=== PATIENT | female | born 1990 | race Caucasian/White ===

== ENCOUNTER 2022-08-12 09:15 | Emergency (ER) | payer SELFPAY ==
--- OUTSIDE RECORDS SUMMARY | 2022-08-12 09:17 | XMS REPORT | Continuity of Care Document ---
:1990 Author Organization [facility] t Address [facility] [place] [address] Care Team Providers Name Role Phone LAYA SEAMAN Attending Clinician Unavailable Problems This patient has no known problems. Allergies, Adverse Reactions, Alerts Allergy Allergy Status Severity Reaction(s) Onset Inactive Treating Comm ents Source Name Type Date Date Clinician LATEX, Drug Active Med Other-Cmnt 0 Univer s NATURAL Class 9-13 ity of RUBBER 00:00: [address] CEFACLOR DRUG Active Hives [facility] INGREDI 8-05 ity of 00:00: [address] Medications This patient has no known medications. Procedures This patient has no known procedures. Encounters Start End Encounter Admission Attending Care Care Encounter Source Date/Time Date/Time Type Type Clinicians Facility Department ID 2020-01-14 2020-01-14 Outpatient R JURGEN WICHRISTOPHER [facility] [id number] [facility] 11:00:00 11:00:[address] [facility] Results This patient has no known results.
[2022-08-12] MEDS ORDERED: ONDANSETRON 4 MG/2 ML VIAL ONE (09:48)
[2022-08-12] MEDS ORDERED: MORPHINE 2 MG/ML SYR ONE (09:48)
[2022-08-12 10:14] LABS: Absolute Lymphocytes (CBC) 1.7 K/uL (0.7-4.9); Hematocrit 40.4 % (36.0-45.0); Lymphocytes % 18.5 % (15.3-44.8); MCV 83.7 fL (80-100); RBC Red Blood Cell Count 4.83 M/uL (3.86-4.86)
--- NOTE | 2022-08-12 10:15 | RAD REPORT ---
EXAM DESCRIPTION: RAD - Chest Single View - 08/12/2022 9:53 am CLINICAL HISTORY: CHEST PAIN COMPARISON: PA chest 01/31/2017 TECHNIQUE: AP portable chest image was obtained 08/12/2022 9:53 am . FINDINGS: Lungs are clear. Overlying breast soft tissues increase lower lung field density. Heart an d vasculature are normal. No measurable pleural effusion and no pneumothorax. No acute bony abnormali ty seen. No acute aortic findings suspected. IMPRESSION: No acute cardiopulmonary process. No significant change from comparison study.
[2022-08-12 10:29] LABS: Troponin High Sensitivity 4.7 pg/mL (<58.9)
[2022-08-12 10:46] LABS: SARS-COV-2 RT PCR NEGATIVE (NEGATIVE)
--- NOTE | 2022-08-12 11:58 | RAD REPORT ---
EXAM DESCRIPTION: CT - Head Brain Wo Cont - 08/12/2022 11:49 am CLINICAL HISTORY: L arm numbness COMPARISON: No comparisons TECHNIQUE: Axial 5 mm thick images of the head were obtained without IV contrast. All CT scans are performed using dose optimization technique as appropriate and may include automated exposure control or mA/KV adjustment according to patient size. FINDINGS: No intracranial hemorrhage, mass, edema or shift of mid-line structures. No acute infarcti on changes seen. No abnormal extra-axial fluid collections. Ventricles are normal. Mastoid air cells are clear. Minimal patchy mucosal thickening seen in the ethmoid air cells. Paranas al sinuses are otherwise clear. There is left deviation of the nasal septum. No acute bony findings. IMPRESSION: No intracranial abnormality identifiable. Patchy mucosal thickening in the ethmoid air cells not likely of clinical significance. Paranasal sin uses are otherwise clear.
--- NOTE | 2022-08-12 12:02 | EDPHYS ---
Physician Documentation [facility] Name: Mercy Troy Age: 31 yrs Sex: Female : 1990 Arrival Date: 08/12/2022 Time: 09:17 Bed 7 Private MD: ED Physician Elias Carrillo HPI: 08/12 09:28 This 31 yrs old Female presents to ER via Ambulatory with complaints of Arm Pain, jh7 Nausea. 09:28 The patient or guardian complains of pain, that is acute. The complaints affect the L jh7 shoulder pain that radiates down to fingertips. Context: The problem was sustained at home, no inury. Onset: The symptoms/episode began/occurred last night. Treatment prior to arrival includes: no previous treatment. Associated signs and symptoms: Pertinent positives: nausea, Pertinent negatives: decreased range of motion, fever, tingling, vomiting, weakness. 09:28 Patient also reports progressive cough over the past 2 weeks.. jh7 Historical: - Allergies: 09:28 Ceclor; iw - PMHx: 09:28 Sepsis; iw - PSHx: 09:28 hysterectomy; bladder; colon resection; section; iw - Immunization history:: Adult Immunizations. - Social history:: Smoking status: Patient reports the use of cigarette tobacco products. ROS: 09:28 MS/extremity: Positive for pain. jh7 09:28 Constitutional: Negative for fever, chills, and weight loss, Eyes: Negative for injury, jh7 pain, redness, and discharge, ENT: Negative for injury, pain, and discharge, Neck: Negative for injury, pain, and swelling, Cardiovascular: Negative for chest pain, palpitations, and edema, Back: Negative for injury and pain, Skin: Negative for injury, rash, and discoloration, Neuro: Negative for headache, weakness, numbness, tingling, and seizure. 09:28 Respiratory: Positive for cough, Negative for shortness of breath, wheezing. 09:28 Abdomen/GI: Positive for nausea, Negative for vomiting, diarrhea, constipation. 09:28 All other systems are negative. jh7 Exam: 09:28 Head/Face: Normocephalic, atraumatic. ENT: Nares patent. No nasal discharge, no jh7 septal abnormalities noted. Tympanic membranes are normal and external auditory canals are clear. Oropharynx with no redness, swelling, or masses, exudates, or evidence of obstruction, uvula midline. Mucous membranes moist. Neck: Trachea midline, no thyromegaly or masses palpated, and no cervical lymphadenopathy. Supple, full range of motion without nuchal rigidity, or vertebral point tenderness. No Meningismus. Cardiovascular: Regular rate and rhythm with a normal S1 and S2. No gallops, murmurs, or rubs. Normal PMI, no JVD. No pulse deficits. Respiratory: Lungs have equal breath sounds bilaterally, clear to auscultation and percussion. No rales, rhonchi or wheezes noted. No increased work of breathing, no retractions or nasal flaring. Abdomen/GI: Soft, non-tender, with normal bowel sounds. No distension or tympany. No guarding or rebound. No evidence of tenderness throughout. Skin: Warm, dry with normal turgor. Normal color with no rashes, no lesions, and no evidence of cellulitis. MS/ Extremity: Pulses equal, no cyanosis. Neurovascular intact. Full, normal range of motion. Neuro: Awake and alert, GCS 15, oriented to person, place, time, and situation. Motor strength 5/5 in all extremities. Sensory grossly intact. Normal gait. 09:28 Constitutional: The patient appears alert, awake, in obvious pain. 09:44 ECG was reviewed by the Attending Physician. [facility] Vital Signs: 09:28 BP 138 / 81; Pulse 104; Resp 18; Temp 97.9(O); Pulse Ox 97% on R/A; Weight 83.91 kg; iw Height 4 ft. 11 in. (149.86 cm); Pain 9/10; 10:55 BP 123 / 64; Pulse 68; Resp 18; Pulse Ox 96% ; hb 11:49 BP 109 / 61; Pulse 68; Resp 19 S; Pulse Ox 94% on R/A; kc6 12:46 BP 117 / 57; Pulse 94; Resp 15 S; Pulse Ox 97% on R/A; kc6 09:28 Body Mass Index 37.37 (83.91 kg, 149.86 cm) iw MDM: 09:20 Patient medically screened. [facility] 12:05 Differential diagnosis: Acute VT, ulnar nerve irritation, acute CVA, left forearm jh7 strain. Data reviewed: vital signs, nurses notes, lab test result(s), EKG, radiologic studies, CT scan, plain films. I considered the following discharge prescriptions or medication management in the emergency department Medications were administered in the Emergency Department. See MAR. Independent interpretation of the following test(s) in the Emergency Department EKG: See my EKG interpretation above. Historians other than the Patient: Friend: . Counseling: I had a detailed discussion with the patient and/or guardian regarding: the historical points, exam findings, and any diagnostic results supporting the discharge/admit diagnosis, to return to the emergency department if symptoms worsen or persist or if there are any questions or concerns that arise at home. ED course: The patient reported that the medication helped with her pain. She stated that her pain was actually starting from the ulnar aspect of her forearm radiating down to her fourth and fifth digits. She stated that her fourth and fifth digits felt numb. Suspected cubital tunnel syndrome/ulnar nerve irritation. Agreed to prescribe anti-inflammatories and muscle relaxers. She was advised that if she develops any new concerning symptoms, she may return to the ER for further eval.. 08/12 09:31 Order name: Basic Metabolic Panel; Complete Time: 11: [facility] 08/12 09:31 Order name: CBC with Diff; Complete Time: 11: [facility] 08/12 09:31 Order name: Troponin HS; Complete Time: 11: [facility] 08/12 09:31 Order name: XRAY Chest (1 view); Complete Time: 10:17 [facility] 08/12 09:34 Order name: COVID-19/FLU A+B; Complete Time: 11:01 [facility] 08/12 11:09 Order name: CT Head Brain wo Cont; Complete Time: 12:01 [facility] 08/12 09:31 Order name: EKG; Complete Time: 09:32 [facility] 08/12 09:31 Order name: Cardiac monitoring; Complete Time: 09:42 [facility] 08/12 09:31 Order name: EKG - Nurse/Tech; Complete Time: 09:42 [facility] 08/12 09:31 Order name: IV Saline Lock; Complete Time: 10:03 [facility] 08/12 09:31 Order name: Labs collected and sent; Complete Time: 10:03 [facility] 08/12 09:31 Order name: O2 Per Protocol; Complete Time: 09:42 [facility] 08/12 09:31 Order name: O2 Sat Monitoring; Complete Time: 09:42 jh7 EC:44 Rate is 82 beats/min. Rhythm is regular. QRS [place] is Normal. WA interval is normal at [facility] 156 msec. QRS interval is normal at 78 msec. QT interval is normal at 384 msec. No Q waves. T waves are Normal. Clinical impression: NSR w/ Non-specific ST/T Changes. Administered Medications: 10:03 Drug: Zofran (Ondansetron) 4 mg Route: IVP; Site: left antecubital; 6 10:59 Follow up: Response: No adverse reaction; Nausea is decreased [facility] 10:03 Drug: morphine 2 mg Route: IVP; Infused Over: 4 mins; Site: left antecubital; 6 10:59 Follow up: Response: No adverse reaction; Pain is decreased; RASS: Alert and Calm (0) [facility] Disposition: 16:25 Co-signature as Attending Physician, Elias Carrillo MD I agree with the assessment and kdr plan of care. Disposition Summary: 08/12/22 12:01 Discharge Ordered Location: Home [facility] Problem: new [facility] Symptoms: have improved [facility] Condition: Stable [facility] Diagnosis - Pain in left arm [facility] Followup: [facility] - With: Private Physician - When: 2 - 3 days - Reason: Recheck today's complaints Discharge Instructions: - Discharge Summary Sheet [facility] - Musculoskeletal Pain [facility] Forms: - Medication Reconciliation Form [facility] - Thank You Letter [facility] Prescriptions: - Naprosyn 500 mg Oral Tablet - take 1 tablet by ORAL route 2 times per day take with food; 30 tablet; Refills: [facility] 0, Product Selection Permitted - Zanaflex 4 mg Oral Tablet - take 1 tablet by ORAL route every 8 hours As needed; 20 tablet; Refills: 0, 7 Product Selection Permitted Signatures: Dispatcher [employer] EDLA Elias Carrillo MD MD kdr Williams, Irene, RN RN iw Hadash, Jennifer, FNP FNP [facility] Vicky Yanez RN RN kc6 Corrections: (The following items were deleted from the chart) 09:35 09:28 MS/extremity: Positive for pain, [place] [id number]
--- NOTE | 2022-08-12 12:02 | ER ---
Nurse's Notes [facility] Name: Mercy Troy Age: 31 yrs Sex: Female : 1990 Arrival Date: 08/12/2022 Time: 09:17 Bed 7 Private MD: Diagnosis: Pain in left arm Presentation: 08/12 09:28 Chief complaint: Patient states: dull left arm pain sine yesterday pain radiates up int iw shoulder , also has a cough 2 weeks. Coronavirus screen: Client presents with at least one sign or symptom that may indicate coronavirus-19. Ebola Screen: Patient negative for fever greater than or equal to 101.5 degrees Fahrenheit, and additional compatible Ebola Virus Disease symptoms Patient denies exposure to infectious person. Patient denies travel to an Ebola-affected area in the 21 days before illness onset. No symptoms or risks identified at this time. Initial Sepsis Screen: Does the patient meet any 2 criteria? No. Patient's initial sepsis screen is negative. Does the patient have a suspected source of infection? No. Patient's initial sepsis screen is negative. Risk Assessment: Do you want to hurt yourself or someone else? Patient reports no desire to harm self or others. Onset of symptoms was August 10, 2022. 09:28 Method Of Arrival: Ambulatory iw 09:28 Acuity: JENSEN 3 iw Historical: - Allergies: 09:28 Ceclor; iw - PMHx: 09:28 Sepsis; iw - PSHx: 09:28 hysterectomy; bladder; colon resection; section; iw - Immunization history:: Adult Immunizations. - Social history:: Smoking status: Patient reports the use of cigarette tobacco products. Screenin:45 [facility] ED Fall Risk Assessment (Adult) History of falling in the last 3 months, kc6 including since admission No falls in past 3 months (0 pts) Confusion or Disorientation No (0 pts) Intoxicated or Sedated No (0 pts) Impaired Gait No (0 pts) Mobility Assist Device Used No (0 pt) Altered Elimination No (0 pt) Score/Fall Risk Level 0 - 2 = Low Risk Oriented to surroundings, Maintained a safe environment, Educated pt \T\ family on fall prevention, incl call for assistance when getting out of bed, Assessed \T\ reinforced patient's understanding of fall precautions, Hourly rounding (assess needs \T\ fall precautionary measures) done. Abuse screen: Denies threats or abuse. Denies injuries from another. Nutritional screening: No deficits noted. Tuberculosis screening: No symptoms or risk factors identified. Assessment: 09:45 General: Appears in no apparent distress. comfortable, Behavior is calm, cooperative, kc6 appropriate for age. Pain: Complains of pain in left arm Pain currently is 10 out of 10 on a pain scale. Quality of pain is described as sharp, shooting, Is continuous, Alleviated by nothing. Also complains of no other associated symptoms. Neuro: Powers Agitation-Sedation Scale (RASS): 0 - Alert and Calm Level of Consciousness is awake, alert, obeys commands, Oriented to person, place, time, situation, Appropriate for age. Cardiovascular: Capillary refill < 3 seconds. Respiratory: Airway is patent Trachea midline Respiratory effort is even, unlabored, Respiratory pattern is regular, symmetrical. GI: Abdomen is flat, non-distended, Bowel sounds present X 4 quads. Abd is soft and non tender X 4 quads. Reports nausea, Patient currently denies diarrhea, vomiting. : No signs and/or symptoms were reported regarding the genitourinary system. EENT: No signs and/or symptoms were reported regarding the EENT system. Derm: No signs and/or symptoms reported regarding the dermatologic system. Skin is intact, Skin is pink, warm \T\ dry. Musculoskeletal: No signs and/or symptoms reported regarding the musculoskeletal system. Circulation, motion, and sensation intact. Capillary refill < 3 seconds, Range of motion: intact in all extremities. 10:56 Reassessment: Patient appears in no apparent distress at this time. Patient and/or hb family updated on plan of care and expected duration. Pain level reassessed. Patient is alert, oriented x 3, equal unlabored respirations, skin warm/dry/pink. 11:47 Reassessment: Patient appears in no apparent distress at this time. Patient and/or hb family updated on plan of care and expected duration. Pain level reassessed. Patient is alert, oriented x 3, equal unlabored respirations, skin warm/dry/pink. 12:46 Reassessment: Patient appears in no apparent distress at this time. No changes from kc6 previously documented assessment. Patient and/or family updated on plan of care and expected duration. Pain level reassessed. Patient is alert, oriented x 3, equal unlabored respirations, skin warm/dry/pink. Vital Signs: 09:28 BP 138 / 81; Pulse 104; Resp 18; Temp 97.9(O); Pulse Ox 97% on R/A; Weight 83.91 kg; iw Height 4 ft. 11 in. (149.86 cm); Pain 9/10; 10:55 BP 123 / 64; Pulse 68; Resp 18; Pulse Ox 96% ; hb 11:49 BP 109 / 61; Pulse 68; Resp 19 S; Pulse Ox 94% on R/A; kc6 12:46 BP 117 / 57; Pulse 94; Resp 15 S; Pulse Ox 97% on R/A; kc6 09:28 Body Mass Index 37.37 (83.91 kg, 149.86 cm) iw ED Course: 09:17 Patient arrived in ED. as 09:20 Shey Baeza FNP is PHCP. jh7 09:20 Elias Carrillo MD is Attending Physician. jh7 09:29 Triage completed. iw 09:30 Arm band placed on. iw 09:38 Vicky Yanez, RN is Primary Nurse. kc6 09:45 Patient has correct armband on for positive identification. Placed in gown. Bed in low kc6 position. Call light in reach. Side rails up X2. Adult w/ patient. 09:55 XRAY Chest (1 view) In Process Unspecified. EDMS 10:03 COVID-19/FLU A+B Sent. kc6 10:03 Basic Metabolic Panel Sent. kc6 10:03 CBC with Diff Sent. kc6 10:03 Troponin HS Sent. kc6 10:04 Inserted saline lock: 20 gauge in left antecubital area, using aseptic technique. Blood kc6 collected. 11:51 CT Head Brain wo Cont In Process Unspecified. EDMS 12:46 No provider procedures requiring assistance completed. IV discontinued, intact, kc6 bleeding controlled, No redness/swelling at site. Pressure dressing applied. Administered Medications: 10:03 Drug: Zofran (Ondansetron) 4 mg Route: IVP; Site: left antecubital; kc6 10:59 Follow up: Response: No adverse reaction; Nausea is decreased kc6 10:03 Drug: morphine 2 mg Route: IVP; Infused Over: 4 mins; Site: left antecubital; kc6 10:59 Follow up: Response: No adverse reaction; Pain is decreased; RASS: Alert and Calm (0) kc6 Medication: 12:49 VIS not applicable for this client. kc6 Outcome: 12:01 Discharge ordered by . theresa 12:47 Discharged to home ambulatory, with significant other. kc6 12:47 Condition: stable 12:47 Discharge instructions given to patient, significant other, Instructed on discharge instructions, follow up and referral plans. medication usage, Demonstrated understanding of instructions, follow-up care, medications, Prescriptions given X 2. 12:50 Patient left the ED. kc6 Signatures: Dispatcher [employer] EDMela Fuller Irene, RN RN Corry Gonsalez RN DENYS Shey Baeza FNP FNP jh7 Campbell, Kaitlyn RN RN kc6 Corrections: (The following items were deleted from the chart) 09:31 09:28 BP 138 / 81; Pulse 104bpm; Resp 18bpm; Pulse Ox 97% RA; [facility]
[2022-08-12 13:15] VITALS: TEMP 97.9
[2022-08-12 13:16] VITALS: BP 123/64; O2SAT 96
== END 2022-08-12 12:50 | disposition home or self-care (01) ==
LOC: ER 09:15
DX: M79.602 Pain in left arm (principal); R11.0 Nausea; R05.9 Cough, unspecified; Z72.0 Tobacco use
CPT/HCPCS: 0240U; 36415; 70450; 71045; 80048; 84484; 85025; 93005; 96374; 96375; 99284; J2270; J2405